=== PATIENT | male | born 1950 | race Caucasian/White ===

== ENCOUNTER → 2022-03-18 | Outpatient (CLI) | payer MEDICARE ==
[2022-03-18 13:05] LABS: BASO # 0.04 K/mm3 (0.02-0.10); EOS # 0.04 K/mm3 (0.04-0.40); EOS % 0.6 % (0.0-4.0); HEMATOCRIT 48.4 % (42.0-52.0); HEMOGLOBIN 16.3 g/dL (13.5-18.0); MEAN CELL VOLUME 91 fl (78-100); MEAN CORPUSCULAR HEMOGLOBIN 31 pg (27-31); MEAN CORPUSCULAR HGB CONC 34 g/dL (33-37); MEAN PLATELET VOLUME 8.5 fl (7.4-10.4); MONO # 0.55 K/mm3 (0.20-0.80); NEU # 5.61 K/mm3 (1.40-6.50); PLATELET COUNT 213 K/mm3 (130-400); RED BLOOD COUNT 5.35 M/mm3 (4.20-5.60); WHITE BLOOD COUNT 7.2 K/mm3 (4.8-10.8)
[2022-03-18 13:15] LABS: ALBUMIN 4.4 g/dL (3.4-4.8); POTASSIUM 4.5 mmol/L (3.5-5.1); SODIUM 142 mmol/L (136-145)
[2022-03-18 13:27] LABS: D-DIMER 0.4 mg/L FEU (0.15-0.50)
[2022-03-18 13:48] LABS: TROPONIN-I < 0.030 ng/mL (<0.030)
[2022-03-18 14:24] LABS: CALCIUM 10.2 mg/dL (8.3-10.5)
[2022-03-18 14:25] LABS: GLUCOSE 97 mg/dL (75-110)
[2022-03-18 14:26] LABS: TOTAL PROTEIN 7.1 g/dL (6.2-8.1)
[2022-03-18 14:27] LABS: CARBON DIOXIDE 23 mmol/L (23-31); TOTAL BILIRUBIN 1.5 mg/dL (0.2-1.2)
[2022-03-18 14:31] LABS: AST-SGOT 15 U/L (5-34)
[2022-03-18 14:32] LABS: ALT/SGPT 12 U/L (0-55)
== END ==
LOC: LAB 12:48
PROVIDERS: Nurse Practitioner Family
DX: R42 Dizziness and giddiness (principal); R23.2 Flushing; R55 Syncope and collapse

== ENCOUNTER → 2023-09-24 | Day surgery (SDC) | payer MEDICARE ==
[~2023-09-24] MED LIST: ADVIL 200MG TA200 MG; FLOMAX0.4 MG PO; GOOD NEIGHBOR M25 M1 PO; NEXIUM20 MG PO
== END | disposition home or self-care (01) ==
LOC: MSO 09:36
DX: H25.813 Combined forms of age-related cataract, bilateral (principal)
CPT/HCPCS: 00142; J0171; J2250; V2632